=== PATIENT | female | born 1950 | race Caucasian/White ===

== ENCOUNTER → 2016-10-07 | Outpatient (REF) | payer OTHER ==
[~2016-10-07] MED LIST: /ALEN7SOL PO; ADV500INH INH; ADVA115INH INH; ALBU0.084 IN; ASPI81TA7 PO; CEFT500T PO; CRES5TAB PO; FLON1SPR; LOVA20TA2 PO; NASA55AE; PRED20TA PO; VENTAER IN; VITA100072 PO; VITA500046 PO; ZOCO40TA PO; [UNRECOGNIZED DRUG - OTHER]; [UNRECOGNIZED DRUG - OTHER] INH
[2016-10-07 12:32] LABS: BASO % 0.8 % (0.0-1.0); EOS # 0.4 K/mm3 (0.0-0.50); EOS % 7.3 % (0.0-3.0); LARGE UNSTAINED CELL # 0.2 K/mm3 (0.0-0.4); LARGE UNSTAINED CELL % 2.8 % (0.0-4.0); LYMPH # 1.7 K/mm3 (1.5-4.5); LYMPH % 29.3 % (24.0-44.0); MEAN CORPUSCULAR HEMOGLOBIN 30.9 pg (27.0-33.0); MEAN CORPUSCULAR HGB CONC 33.1 g/dl (32.0-36.5); MEAN CORPUSCULAR VOLUME 93.4 fl (80.0-96.0); MONO # 0.4 K/mm3 (0.0-0.8); NEUTROPHILS # 3.1 K/mm3 (1.8-7.7); NEUTROPHILS % 53.8 % (36.0-66.0); PLATELET COUNT, AUTOMATED 267 k/mm3 (150-450); RED CELL DISTRIBUTION WIDTH 11.8 % (11.5-14.5); WHITE BLOOD COUNT 5.7 K/mm3 (4.0-10.0)
[2016-10-07 12:52] LABS: ALBUMIN 3.9 GM/DL (3.2-5.2); ALBUMIN/GLOBULIN RATIO 1.63 (1.00-1.93); BILIRUBIN,TOTAL 0.4 MG/DL (0.2-1.0); CALCIUM LEVEL 8.8 MG/DL (8.8-10.2); CREATININE FOR GFR 1.4 MG/DL (0.55-1.02); GLOMERULAR FILTRATION RATE 40.3 (>45); POTASSIUM SERUM 4.6 MEQ/L (3.5-5.1); TOTAL PROTEIN 6.3 GM/DL (6.4-8.2)
== END ==
LOC: M SFHCPLAZ 08:33
PROVIDERS: ATTEND Physician Assistant
DX: N18.3 Chronic kidney disease, stage 3 (moderate) (principal); E78.4 Other hyperlipidemia; E55.9 Vitamin D deficiency, unspecified

== ENCOUNTER → 2016-11-11 | Outpatient (REF) | payer OTHER | LOC: M SFHCWAGY 08:26 | PROVIDERS: ATTEND Nurse Practitioner Family | DX: Z12.4 Encounter for screening for malignant neoplasm of cervix (principal) ==

== ENCOUNTER → 2017-09-02 | Outpatient (REF) | payer MEDICARE, MEDICAID ==
[2017-09-02 11:52] LABS: BASO # 0.1 10^3/uL (0.0-0.2); EOS # 0.5 10^3/uL (0.0-0.50); EOS % 8.4 % (0.0-3.0); HEMATOCRIT 45.2 % (36.0-47.0); HEMOGLOBIN 15.2 g/dl (12.0-16.0); IMMATURE GRANULOCYTE % 0.3 % (0-3.0); LYMPH # 1.8 10^3/uL (1.5-4.5); LYMPH % 29.1 % (24.0-44.0); MEAN CORPUSCULAR HEMOGLOBIN 31.6 pg (27.0-33.0); MEAN CORPUSCULAR HGB CONC 33.6 g/dl (32.0-36.5); MONO # 0.4 10^3/uL (0.0-0.8); MONO % 6.3 % (0.0-5.0); NEUTROPHILS # 3.4 10^3/uL (1.8-7.7); NEUTROPHILS % 54.9 % (36.0-66.0); PLATELET COUNT, AUTOMATED 226 10^3/uL (150-450); RED BLOOD COUNT 4.81 10^6/uL (4.00-5.40); WHITE BLOOD COUNT 6.2 10^3/uL (4.0-10.0)
[2017-09-02 12:49] LABS: ALBUMIN 4.3 GM/DL (3.2-5.2); ALBUMIN/GLOBULIN RATIO 1.59 (1.00-1.93); ALKALINE PHOSPHATASE 76 U/L (45-117); ALT/SGPT 24 U/L (12-78); ANION GAP 8 MEQ/L (8-16); AST/SGOT 28 U/L (7-37); BILIRUBIN,TOTAL 0.7 MG/DL (0.2-1.0); BLOOD UREA NITROGEN 17 MG/DL (7-18); CALCIUM LEVEL 9.2 MG/DL (8.8-10.2); CARBON DIOXIDE LEVEL 29 MEQ/L (21-32); CHLORIDE LEVEL 105 MEQ/L (98-107); CHOLESTEROL LEVEL 217 MG/DL (<200); CHOLESTEROL RISK RATIO 4.094 (<5); CREATININE FOR GFR 1.23 MG/DL (0.55-1.30); GLOMERULAR FILTRATION RATE 46.6 (>45); GLUCOSE, FASTING 105 MG/DL (70-100); HDL CHOLESTEROL 53 MG/DL (>40); NON-HDL-C 164 MG/DL; POTASSIUM SERUM 4.8 MEQ/L (3.5-5.1); SODIUM LEVEL 142 MEQ/L (136-145); TRIGLYCERIDES LEVEL 155 MG/DL (<150)
== END ==
LOC: M SFHCPLAZ 10:52
DX: Z00.00 Encounter for general adult medical examination without abnormal findings (principal); E78.5 Hyperlipidemia, unspecified; N18.3 Chronic kidney disease, stage 3 (moderate)
CPT/HCPCS: 80053

== ENCOUNTER → 2017-11-12 | Outpatient (REF) | payer MEDICARE, MEDICAID | LOC: M SFHCWAGY 08:26 | DX: Z01.419 Encounter for gynecological examination (general) (routine) without abnormal findings (principal); Z12.12 Encounter for screening for malignant neoplasm of rectum | CPT/HCPCS: G0123 ==

== ENCOUNTER → 2018-03-03 | Outpatient (REF) | payer MEDICARE, OTHER, MEDICAID ==
[2018-03-03 11:50] LABS: ALBUMIN 4.1 GM/DL (3.2-5.2); ALBUMIN/GLOBULIN RATIO 1.46 (1.00-1.93); ALKALINE PHOSPHATASE 63 U/L (45-117); ALT/SGPT 25 U/L (12-78); ANION GAP 9 MEQ/L (8-16); AST/SGOT 27 U/L (7-37); BILIRUBIN,TOTAL 0.8 MG/DL (0.2-1.0); BLOOD UREA NITROGEN 18 MG/DL (7-18); CALCIUM LEVEL 9.1 MG/DL (8.8-10.2); CARBON DIOXIDE LEVEL 27 MEQ/L (21-32); CHLORIDE LEVEL 108 MEQ/L (98-107); CREATININE FOR GFR 1.21 MG/DL (0.55-1.30); GLOMERULAR FILTRATION RATE 47.4 (>45); GLUCOSE, FASTING 95 MG/DL (70-100); POTASSIUM SERUM 4.5 MEQ/L (3.5-5.1); SODIUM LEVEL 144 MEQ/L (136-145); TOTAL PROTEIN 6.9 GM/DL (6.4-8.2)
[2018-03-04 10:58] LABS: HEP C VIRUS AB SCREEN MEDICARE 0.1 INDEX (<0.8)
== END ==
LOC: M SFHCPLAZ 09:10
DX: Z11.59 Encounter for screening for other viral diseases (principal); N18.3 Chronic kidney disease, stage 3 (moderate); E78.5 Hyperlipidemia, unspecified
CPT/HCPCS: 80053

== ENCOUNTER → 2018-09-02 | Outpatient (REF) | payer OTHER, MEDICAID ==
[~2018-09-02] MED LIST changes: +ASPI1TAB PO; +CALC1CAP31 PO; +FLUT11IN INH
[2018-09-02 12:21] LABS: BILIRUBIN,TOTAL 0.8 MG/DL (0.2-1.0); CALCIUM LEVEL 8.9 MG/DL (8.8-10.2); CHOLESTEROL RISK RATIO 3.44 (<5); CREATININE FOR GFR 1.27 MG/DL (0.55-1.30); FREE T4 0.89 NG/DL (0.76-1.46); GLOMERULAR FILTRATION RATE 44.8 (>45); POTASSIUM SERUM 4.4 MEQ/L (3.5-5.1); THYROID STIMULATING HORMONE 2.63 uIU/ML (0.358-3.740); TOTAL PROTEIN 6.7 GM/DL (6.4-8.2)
== END ==
LOC: M SFHCPLAZ 08:12
PROVIDERS: ATTEND Nurse Practitioner Family
DX: E78.5 Hyperlipidemia, unspecified (principal); N18.3 Chronic kidney disease, stage 3 (moderate)

== ENCOUNTER 2018-11-15 12:19 | Day surgery (SDC) | payer MEDICARE, MEDICAID ==
[~2018-11-15] VITALS: Ht 157.5 cm; Wt 76.2 kg
[~2018-11-15 12:19] MED LIST changes: -ASPI1TAB PO; +ASPI81TA26 PO; +NS 1,000 ML IV ONE; +PROAAER10 INH; +VITA100018 PO; -VITA100072 PO; +VITA500045 PO
[2018-11-15] MEDS ORDERED: PROPOFOL 200 MG/20 ML VIAL As Ordered ONE ×2 (14:12→14:13)
[2018-11-15] MEDS ORDERED: LIDOCAINE 2% INJ 100 MG/5 ML SDV (FOR ANES.) As Ordered ONE (14:13)
--- NOTE | 2018-11-15 14:32 | ROOR ---
Patient Name: Kristan Gold Procedure Date: 11/15/2018 2:00 PM Date of : 1950 Age: 68 Room: [facility] Gender: Female Note Status: Finalized Procedure: Colonoscopy Indications: Screening for colorectal malignant neoplasm Providers: Jesse Wolf MD Referring MD: Ana M Holguin NP Requesting Provider: Medicines: Monitored Anesthesia Care Complications: No immediate complications. Procedure: Pre-Anesthesia Assessment: - Prior to the procedure, a History and Physical was performed, and patient medications and allergies were reviewed. The patient is competent. The risks and benefits of the procedure and the sedation options and risks were discussed with the patient. All questions were answered and informed consent was obtained. Patient identification and proposed procedure were verified by the physician, the nurse and the anesthesiologist in the endoscopy suite. Mental Status Examination: alert and oriented. Airway Examination: normal oropharyngeal airway and neck mobility. Respiratory Examination: clear to auscultation. CV Examination: normal. Prophylactic Antibiotics: The patient does not require prophylactic antibiotics. Prior Anticoagulants: The patient has taken aspirin, last dose was day of procedure. ASA Grade Assessment: II - A patient with mild systemic disease. After reviewing the risks and benefits, the patient was deemed in satisfactory condition to undergo the procedure. The anesthesia plan was to use monitored anesthesia care (MAC). Immediately prior to administration of medications, the patient was re-assessed for adequacy to receive sedatives. The heart rate, respiratory rate, oxygen saturations, blood pressure, adequacy of pulmonary ventilation, and response to care were monitored throughout the procedure. The physical status of the patient was re-assessed after the procedure. The Colonoscope was introduced through the anus and advanced to the cecum, identified by appendiceal orifice and ileocecal valve. The colonoscopy was performed without difficulty. The patient tolerated the procedure well. The quality of the bowel preparation was good. Findings: Skin tags were found on perianal exam. A diminutive polyp was found in the descending colon. The polyp was sessile. The polyp was removed with a jumbo cold forceps. Resection and retrieval were complete. Estimated blood loss was minimal. The entire examined colon appeared normal. No additional abnormalities were found on retroflexion. Impression: - Perianal skin tags found on perianal exam. - One diminutive polyp in the descending colon, removed with a jumbo cold forceps. Resected and retrieved. - The entire examined colon is normal. Recommendation: - Discharge patient to home (ambulatory). - Repeat colonoscopy in 10 years for screening purposes. - Telephone my office for pathology results in 1 week. Jesse Wolf MD Jesse Wolf MD 11/15/2018 2:31:52 PM Electronically signed by Jesse Wolf MD Number of Addenda: 0 Note Initiated On: 11/15/2018 2:00 PM Estimated Blood Loss: Estimated blood loss: none. Estimated blood loss was minimal.
[2018-11-15 15:00] VITALS: BP 160/76
== END 2018-11-15 15:14 | disposition home or self-care (01) ==
LOC: M OPP 12:19
PROVIDERS: ATTEND Surgery
DX: D12.4 Benign neoplasm of descending colon (principal); K64.4 Residual hemorrhoidal skin tags; Z12.11 Encounter for screening for malignant neoplasm of colon

== ENCOUNTER → 2019-01-30 | Outpatient (CLI) | payer MEDICARE, MEDICAID ==
[~2019-01-30] MED LIST changes: -NS 1,000 ML IV ONE
--- NOTE | 2019-01-30 21:08 | REP ---
Clinical: Left knee pain Technique: AP, lateral, bilateral oblique and sunrise views left knee . Findings: Mild tricompartmental osteoarthritic degenerative changes include subchondral sclerosis with minimal disc space narrowing and very early marginal spurring. [place] view demonstrates sclerosis and fraying along the anterior patellar margin suggesting associated tendinopathy. No acute fracture dislocation. No effusion. 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 Electronically Signed by Barber Deleon MD 01/30/2019 08:59 P
== END ==
LOC: M WUC 09:35
PROVIDERS: ATTEND Nurse Practitioner Family
DX: M17.12 Unilateral primary osteoarthritis, left knee (principal)

== ENCOUNTER → 2019-09-04 | Outpatient (REF) | payer MEDICARE, MEDICAID ==
[2019-09-04 12:01] LABS: BILIRUBIN,TOTAL 0.8 MG/DL (0.2-1.0); CALCIUM LEVEL 9.1 MG/DL (8.8-10.2); CHOLESTEROL RISK RATIO 3.28 (<5); CREATININE FOR GFR 1.24 MG/DL (0.55-1.30); GLOMERULAR FILTRATION RATE 45.9 (>45); POTASSIUM SERUM 4.6 MEQ/L (3.5-5.1); TOTAL PROTEIN 6.7 GM/DL (6.4-8.2)
[2019-09-04 12:21] LABS: TOTAL 25(OH) VITAMIN D 33.5 NG/ML (30.0-100.0)
[2019-09-04 13:08] LABS: HEMOGLOBIN A1c 5.9 %
== END ==
LOC: M SFHCPLAZ 09:22
PROVIDERS: ATTEND Nurse Practitioner Family
DX: N18.3 Chronic kidney disease, stage 3 (moderate) (principal); E78.5 Hyperlipidemia, unspecified; E55.9 Vitamin D deficiency, unspecified; Z79.899 Other long term (current) drug therapy

== ENCOUNTER → 2019-09-11 | Outpatient (CLI) | payer MEDICARE, MEDICAID ==
--- NOTE | 2019-09-12 13:15 | DEXA ---
AP SPINE L1 - L4 1.082 -0.9 0.7 LT FEMUR TOTAL 0.948 -0.5 0.9 LT NECK 0.933 -0.8 0.8 RT FEMUR TOTAL 0.915 -0.7 0.6 RT NECK 0.802 -1.7 -0.1 TOTAL BODY TOTAL OTHER COMMENTS: Normal bone densitometry of the spine. Normal bone densitometry of the left hip. There is low bone density of the right hip. The density of the spine is increased 2.2% since the initial exam on 08/20/2006. The spine density has increased 0.8% since the most recent exam on 11/14/2014. The density of the left hip has increased 13.4% since the initial exam on 08/20/2006. The density of the left hip has increased 7.0% since the most recent exam on 11/14/2014. The density of the right hip has decreased 0.8% since the initial exam on 08/20/2006. The density of the right hip has increased 2.5% since most recent exam on 11/14/2014. FOLLOW-UP: Recommendation for the next bone density exam: 2 years. CHUCKY
== END ==
LOC: M WHC 10:22
PROVIDERS: ATTEND Nurse Practitioner Family
DX: M81.0 Age-related osteoporosis without current pathological fracture (principal)

== ENCOUNTER → 2019-10-13 | Outpatient (CLI) | payer MEDICARE, MEDICAID ==
[2019-10-13 11:36] LABS: HEMATOCRIT 47.5 % (36.0-47.0); HEMOGLOBIN 15.9 g/dl (12.0-15.5); PLATELET COUNT, AUTOMATED 222 10^3/uL (150-450); WHITE BLOOD COUNT 6.5 10^3/uL (4.0-10.0)
[2019-10-13 12:11] LABS: CALCIUM LEVEL 9.4 MG/DL (8.8-10.2); CREATININE FOR GFR 1.27 MG/DL (0.55-1.30); GLOMERULAR FILTRATION RATE 44.7 (>45); POTASSIUM SERUM 4.6 MEQ/L (3.5-5.1)
== END ==
LOC: M PLALAB 08:45
PROVIDERS: ATTEND Physical Medicine & Rehabilitation
DX: Z01.818 Encounter for other preprocedural examination (principal); I10 Essential (primary) hypertension; Z79.899 Other long term (current) drug therapy
CPT/HCPCS: 36415; 80048; 85014; 85018; 85027; 85048; 93005; G0463

== ENCOUNTER → 2019-11-23 | Outpatient (CLI) | payer MEDICARE, MEDICAID | LOC: M PLALAB 09:26 | PROVIDERS: ATTEND Nurse Practitioner Family | DX: Z01.419 Encounter for gynecological examination (general) (routine) without abnormal findings (principal) | CPT/HCPCS: 36415; G0101; G0123 ==

== ENCOUNTER → 2020-02-15 | Outpatient (CLI) | payer MEDICARE, MEDICAID ==
--- NOTE | 2020-02-15 08:09 | REP ---
Clinical: Genetic predisposition to breast/ovarian cancer. Technique: Transabdominal pelvic ultrasound with color evaluation. The patient declined transvaginal examination. Findings: Bladder is normal and measures 7.1 x 4.6 x 6.9 cm. Normal anteverted uterus measures 7.2 x 3.4 x 4.8 cm. Endometrial complex measures 3.6 mm thickness. Bilateral ovaries are normal in appearance. Right ovary measures 2.2 x 1.5 x 2.5 cm. Left ovary measures 1.8 x 0.8 x 1.7 cm. No pelvic fluid or adnexal mass lesion. Impression: Limited transabdominal examination without obvious abnormality noted. Electronically Signed by Barber Deleon MD 02/15/2020 08:02 A
== END ==
LOC: M WHC 06:49
PROVIDERS: ATTEND Obstetrics & Gynecology
DX: Z15.02 Genetic susceptibility to malignant neoplasm of ovary (principal)

== ENCOUNTER → 2020-02-28 | Outpatient (REF) | payer MEDICARE, MEDICAID ==
[2020-03-28 22:46] LABS: BASO # 0.1 10^3/uL (0.0-0.2); BASO % 0.9 % (0.0-1.0); EOS # 0.4 10^3/uL (0.0-0.5); EOS % 5.6 % (0.0-3.0); HEMATOCRIT 48.7 % (36.0-47.0); HEMOGLOBIN 15.8 g/dl (12.0-15.5); LYMPH # 2.1 10^3/uL (1.5-5.0); LYMPH % 30.9 % (24.0-44.0); MEAN CORPUSCULAR HEMOGLOBIN 31.7 pg (27.0-33.0); MEAN CORPUSCULAR HGB CONC 32.4 g/dl (32.0-36.5); MEAN CORPUSCULAR VOLUME 97.8 fl (80.0-96.0); MONO # 0.6 10^3/uL (0.0-0.8); MONO % 8.2 % (0.0-5.0); NEUTROPHILS # 3.7 10^3/uL (1.5-8.5); NEUTROPHILS % 54.3 % (36.0-66.0); PLATELET COUNT, AUTOMATED 220 10^3/uL (150-450); RED BLOOD COUNT 4.98 10^6/uL (4.00-5.40); WHITE BLOOD COUNT 6.8 10^3/uL (4.0-10.0)
[2020-04-13 17:38] LABS: ALBUMIN 4.3 GM/DL (3.2-5.2); BILIRUBIN,TOTAL 0.5 MG/DL (0.2-1.0); CALCIUM LEVEL 9.2 MG/DL (8.8-10.2); CREATININE FOR GFR 1.36 MG/DL (0.55-1.30); GLOMERULAR FILTRATION RATE 41.2 (>45)
== END ==
LOC: M SFHCPLAZ 10:45
PROVIDERS: ATTEND Internal Medicine
DX: N18.3 Chronic kidney disease, stage 3 (moderate) (principal); J45.40 Moderate persistent asthma, uncomplicated; E78.5 Hyperlipidemia, unspecified
CPT/HCPCS: 36415; 80053; 85025; 93005; G0463

== ENCOUNTER 2020-03-08 08:30 | Day surgery (SDC) | payer MEDICARE, MEDICAID ==
[2020-03-08] MEDS ORDERED: ceFAZolin 2 GM/D5W 50 ML IV BAG (J0690 PER 500MG) ONE (08:49)
[2020-03-08] MEDS ORDERED: ceFAZolin 2 GM/D5W 50 ML IV BAG (J0690 PER 500MG) As Ordered ONE (08:49)
[2020-03-08] MEDS ORDERED: MIDAZOLAM INJ 2MG/2ML VIAL (J2250 PER 1MG) As Ordered ONE (10:38)
[2020-03-08] MEDS ORDERED: fentaNYL 250 MCG/5 ML INJECTION (J3010) As Ordered ONE (10:38)
[2020-03-08] MEDS ORDERED: propofoL 200 MG/20 ML VIAL As Ordered ONE (10:38)
[2020-03-08] MEDS ORDERED: LIDOCAINE 2% 100MG/5ML SDV (FOR ANES.) As Ordered ONE (10:41)
[2020-03-08] MEDS ORDERED: ROCURONIUM BROMIDE 50 MG/5 ML VIAL As Ordered ONE ×2 (10:41→14:04)
[2020-03-08] MEDS ORDERED: ONDANSETRON 4MG/2ML VIAL As Ordered ONE (10:41)
[2020-03-08] MEDS ORDERED: dexameTHASONE 4 MG/ML 1ML VIAL (J1100 PER 1MG) As Ordered ONE (10:41)
[2020-03-08] MEDS ORDERED: BUPIVACAINE HCL 0.25% 30ML VIAL As Ordered ONE (11:47)
[2020-03-08] MEDS ORDERED: METHYLENE BLUE 0.5% (5MG/ML) 10 ML AMP (PROVAYBLUE) As Ordered ONE (11:47)
[2020-03-08] MEDS ORDERED: HYDROmorphone HCL 2 MG/ML 1ML VIAL (J1170) As Ordered ONE (13:34)
[2020-03-08] MEDS ORDERED: SUGAMMADEX SODIUM 500 MG/5 ML VIAL (BRIDION) As Ordered ONE (13:34)
[2020-03-08] MEDS ORDERED: ePHEDrine SULFATE 25 MG/5 ML(5MG/ML) SYRINGE As Ordered ONE (13:47)
[2020-03-08] MEDS ORDERED: KETOROLAC 60MG 2ML VIAL As Ordered ONE (13:49)
[2020-03-08] MEDS ORDERED: ACETAMINOPHEN 1000MG 100ML IV BTL (OFIRMEV) (J0131 PER 10MG) As Ordered ONE (14:06)
[2020-03-09] MEDS ORDERED: PERCOCET 5MG/325MG TAB As Ordered ONE (02:15)
--- NOTE | 2020-05-02 13:23 | RO ---
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 Severe pelvic adhesive disease, diverticular disease. PROCEDURE PERFORMED: Robotic assisted total laparoscopic hysterectomy, bilateral salpingo-oophorectomy (risk reducing), extensive robotic assisted lysis of adhesions. SURGEON: Camden Martinez MD SPONSORSHIP MANAGER: Zach Hunt ANESTHESIA: General endotracheal. SPECIMENS SENT TO PATHOLOGY: Uterus, cervix and fallopian tubes and ovaries bilaterally. ESTIMATED BLOOD LOSS: 100 ml FLUIDS REFPLACE: 1,600 ml lactate Ringers DRAINS: Olivares catheter. URINE OUTPUT: 150 ml COMPLICAIONS: None. PREOPERATIVE ANTIBIOTICS: Ancef 2 gm IV times one INTRAOPERATIVE FINDINGS: Severe pelvic adhesive disease involving the uterus, cervix, fallopian tubes and ovaries bilaterally. The GROUP THER[employer]IST organs were essentially cased in adhesions and in close proximity to severe diverticular disease. No evidence of any bowel injury during the surgery. INDICATION: BRCA2 carrier. The patient has a personal history of breast cancer. She has a sister with ovarian cancer. PROCEDURE: The patient was counseled and consented on the risks, benefits, indications and alternatives of the procedure, informed consent was obtained. She was taken to the operating room with the IV running and placed on the operating table in the dorsal supine position. General anesthesia was administered and the airway secured without any difficulty. She was then placed on the low lithotomy position. She was prepared and draped in the normal sterile fashion. Time-out was performed per protocol. The Olivares catheter was placed under sterile conditions. A sterile spectrum was placed into the vagina. The cervix was stenotic and postmenopausal and very attenuated. The cervical os was stenotic and was unable to initially gain access into the intrauterine cavity. An 11 blade was used to make a cruciate incision along the cervical os and then lacrimal duct probes were used to sequentially dilate the cervix. I eventually was able to gain access into the intrauterine cavity and the Alfa dilators were used to dilate the cervix up to #16. The IM-Senseare uterine manipulator was then placed in typical fashion. The speculum was removed from the vagina. Glove switch was performed. Attention was turned to the abdomen. A Veress needle was placed through the umbilicus into the intraperitoneal cavity. Intraperitoneal placement was confirmed with easy flow of normal saline. Negative return on aspiration and a positive drop test. Opening pressure was 2 mmHg. The abdomen was insufflated with 2 liters of gas. The Veress needle was removed. A supraumbilical incision was made at the midline 8 mm long with an 11 blade; and through this incision, a DaVinci cannula/trocar was placed under direct visualization. Intraperitoneal placement was confirmed. No incidental bleeding or injury was noted. The additional DaVinci port sites were placed in the left and right abdomen, two incisions on each side, each 8 mm and each accommodating an 8 mm DaVinci cannula. Each of the cannulas was placed with the trocars under direct visualization without any difficulty. The patient was then placed in steep Trendelenburg with findings noted above. There was a significant amount of pelvic adhesive disease and none of the anatomy was fully delineated initially. The attention was then turned to the robotic console with meticulous dissection of adhesions; first by reducing the adhesions that were attaching the bowel to the posterior uterus and then the pelvic sidewall/adnexa bilaterally. The adnexa, to include the ovaries, were identified bilaterally after extensive adhesiolysis and retroperitoneal dissection to also identify the ureter. The left IP ligament was identified and sequentially clamped, coagulated and cut with the Vessel Sealer device; thus, detaching the left ovary. In similar fashion, the right IP ligament was identified noted to be away from the right ureter and the right IP ligament was sequentially clamped, coagulated and transected using the Vessel Sealer device. The underlying mesosalpinx was sequentially clamped, coagulated and transected using the Vessel Sealer device for both the right and left fallopian tubes. The excised fallopian tubes and ovaries were brought through the 8 mm cannulas given the very small size of these organs. The attention was then turned to performing the hysterectomy. Again, an extensive amount of adhesiolysis was performed as I traveled down the uterus to identify the colpotomy ring/cup. The right and left uteroovarian ligaments were sequentially clamped, coagulated and transected using the Vessel Sealer device. The round ligaments were then clamped, coagulated and transected using the Vessel Sealer device. A vesicouterine peritoneum dissection was performed/adhesiolysis to identify the anterior cup of the colpotomy ring with the VCare device. The entire VCare cup could be identified. Circumferential incision was made Monopolar phan to create the colpotomy. After this was performed, the uterus and cervix were fully detached and brought through the vagina. The vaginal cuff was then closed with a V-Loc suture in running fashion. Excellent hemostasis was noted. Melissa was placed over the surgical sites. Excellent hemostasis was noted throughout. No evidence of bowel injury was noted. The gas was released from the abdomen. The patient was taken out of Trendelenburg after the robot was un-docked. The Olivares catheter was removed. I was unable to place the cystoscope through the very small urethra, it barely accommodated and 16 Sami Olivares catheter; and given there was no concern for ureteral injury, given the level of dissection and the ability to identify it laparoscopically, the decision was made to forego the cystoscopy. The vagina was copiously irrigated and the vaginal cuff was palpated and noted to be intact. Glove switch was performed. Attention was turned back to the abdomen. The laparoscopic cannulas were removed after the air was removed. The skin incisions were closed with 4-0 monochrome subcuticular fashion re-enforcement Dermabond. The patient tolerated the entire procedure well. Sponge, needle and instrument counts were correct per protocol. The patient was transferred to the PACU in good and stable condition. [facility]
[2020-05-04 19:32] LABS: HEMOGLOBIN 17.1 g/dl (12.0-15.5); MEAN CORPUSCULAR HEMOGLOBIN 31.9 pg (27.0-33.0); MEAN CORPUSCULAR HGB CONC 33.5 g/dl (32.0-36.5); MEAN CORPUSCULAR VOLUME 95.1 fl (80.0-96.0); PLATELET COUNT, AUTOMATED 216 10^3/uL (150-450); RED BLOOD COUNT 5.36 10^6/uL (4.00-5.40); WHITE BLOOD COUNT 6.7 10^3/uL (4.0-10.0)
== END 2020-03-09 08:50 | disposition home or self-care (01) ==
LOC: M SDC 08:30
PROVIDERS: ATTEND Obstetrics & Gynecology
DX: N84.0 Polyp of corpus uteri (principal); N73.6 Female pelvic peritoneal adhesions (postinfective); N83.331 Acquired atrophy of right ovary and fallopian tube; N83.332 Acquired atrophy of left ovary and fallopian tube; Z15.01 Genetic susceptibility to malignant neoplasm of breast; Z15.02 Genetic susceptibility to malignant neoplasm of ovary; K57.90 Diverticulosis of intestine, part unspecified, without perforation or abscess without bleeding; Z85.3 Personal history of malignant neoplasm of breast; Z80.41 Family history of malignant neoplasm of ovary; J45.909 Unspecified asthma, uncomplicated; N28.9 Disorder of kidney and ureter, unspecified; Z92.21 Personal history of antineoplastic chemotherapy; Z92.3 Personal history of irradiation; Z90.13 Acquired absence of bilateral breasts and nipples; Z79.899 Other long term (current) drug therapy; Z79.82 Long term (current) use of aspirin; Z79.51 Long term (current) use of inhaled steroids; Z88.6 Allergy status to analgesic agent; Z88.1 Allergy status to other antibiotic agents
CPT/HCPCS: 58571; 85027; 86850; 86900; 86901; 88307; J0131; J0690; J1100; J1170; J1885; J2250; J2405; J3010; Q9968

== ENCOUNTER → 2020-04-09 | Outpatient (CLI) | payer MEDICARE, MEDICAID ==
[2020-04-09 13:24] LABS: BILIRUBIN,TOTAL 0.7 MG/DL (0.2-1.0); CALCIUM LEVEL 9.1 MG/DL (8.8-10.2); CHOLESTEROL RISK RATIO 4.333 (<5); CREATININE FOR GFR 1.24 MG/DL (0.55-1.30); GLOMERULAR FILTRATION RATE 45.8 (>45); POTASSIUM SERUM 4.5 MEQ/L (3.5-5.1); TOTAL PROTEIN 6.8 GM/DL (6.4-8.2)
[2020-04-09 13:26] LABS: BASO # 0.1 10^3/uL (0.0-0.2); BASO % 0.9 % (0.0-1.0); EOS # 0.4 10^3/uL (0.0-0.5); EOS % 7.6 % (0.0-3.0); HEMATOCRIT 44.8 % (36.0-47.0); HEMOGLOBIN 14.6 g/dl (12.0-15.5); LYMPH # 1.6 10^3/uL (1.5-5.0); LYMPH % 29.3 % (24.0-44.0); MEAN CORPUSCULAR HEMOGLOBIN 31.5 pg (27.0-33.0); MEAN CORPUSCULAR HGB CONC 32.6 g/dl (32.0-36.5); MEAN CORPUSCULAR VOLUME 96.6 fl (80.0-96.0); MONO # 0.5 10^3/uL (0.0-0.8); MONO % 9.1 % (0.0-5.0); NEUTROPHILS # 2.9 10^3/uL (1.5-8.5); NEUTROPHILS % 52.9 % (36.0-66.0); PLATELET COUNT, AUTOMATED 204 10^3/uL (150-450); RED BLOOD COUNT 4.64 10^6/uL (4.00-5.40); WHITE BLOOD COUNT 5.4 10^3/uL (4.0-10.0)
== END ==
LOC: M PLALAB 08:55
PROVIDERS: ATTEND Physician Assistant Medical
DX: E78.5 Hyperlipidemia, unspecified (principal); N18.3 Chronic kidney disease, stage 3 (moderate); Z90.79 Acquired absence of other genital organ(s)

== ENCOUNTER → 2020-11-05 | Outpatient (REF) | payer MEDICARE, MEDICAID ==
[2020-11-05 11:23] LABS: ALBUMIN 3.9 GM/DL (3.2-5.2); BILIRUBIN,TOTAL 0.5 MG/DL (0.2-1.0); CALCIUM LEVEL 9.3 MG/DL (8.8-10.2); CHOLESTEROL RISK RATIO 3.555 (<5); CREATININE FOR GFR 1.17 MG/DL (0.55-1.30); FREE T4 0.9 NG/DL (0.76-1.46); POTASSIUM SERUM 4.6 MEQ/L (3.5-5.1); THYROID STIMULATING HORMONE 2.19 uIU/ML (0.358-3.740); TOTAL PROTEIN 6.6 GM/DL (6.4-8.2)
[2020-11-05 11:24] LABS: TOTAL 25(OH) VITAMIN D 18.7 NG/ML (30.0-100.0)
[2020-11-05 12:14] LABS: HEMOGLOBIN A1c 5.6 %
== END ==
LOC: M PLALAB 09:48
PROVIDERS: ATTEND Nurse Practitioner Family
DX: E55.9 Vitamin D deficiency, unspecified (principal); E78.5 Hyperlipidemia, unspecified; N18.30 Chronic kidney disease, stage 3 unspecified; R73.01 Impaired fasting glucose

== ENCOUNTER → 2021-04-28 | Outpatient (CLI) | payer MEDICARE, MEDICAID ==
[2021-04-28 14:42] LABS: ALBUMIN 4.3 GM/DL (3.2-5.2); BILIRUBIN,TOTAL 0.8 MG/DL (0.2-1.0); CALCIUM LEVEL 9.6 MG/DL (8.8-10.2); CHOLESTEROL RISK RATIO 3.442 (<5); CREATININE FOR GFR 1.31 MG/DL (0.55-1.30); GLOMERULAR FILTRATION RATE 42.9 (>45); POTASSIUM SERUM 4.4 MEQ/L (3.5-5.1); TOTAL PROTEIN 6.8 GM/DL (6.4-8.2)
[2021-04-28 15:54] LABS: HEMOGLOBIN A1c 5.5 %
== END ==
LOC: M PLALAB 09:18
PROVIDERS: ATTEND Nurse Practitioner Family
DX: E78.5 Hyperlipidemia, unspecified (principal); Z79.899 Other long term (current) drug therapy

== ENCOUNTER → 2021-06-27 | Outpatient (CLI) | payer MEDICARE ==
[2021-06-27 10:40] LABS: ALBUMIN 3.7 GM/DL (3.2-5.2); CALCIUM LEVEL 9.2 MG/DL (8.8-10.2); CREATININE FOR GFR 1.22 MG/DL (0.55-1.30); GLOMERULAR FILTRATION RATE 46.5 (>45); PHOSPHORUS LEVEL 2.9 MG/DL (2.5-4.9); POTASSIUM SERUM 4.6 MEQ/L (3.5-5.1)
== END ==
LOC: M PLALAB 08:54
PROVIDERS: ATTEND Nurse Practitioner Family
DX: N18.30 Chronic kidney disease, stage 3 unspecified (principal)

== ENCOUNTER → 2021-12-01 | Outpatient (CLI) | payer MEDICARE, MEDICAID | LOC: M WHC 10:54 | PROVIDERS: ATTEND Nurse Practitioner Family | DX: M85.89 Other specified disorders of bone density and structure, multiple sites (principal) ==

== ENCOUNTER 2022-01-27 15:23 | Inpatient (IN) | payer MEDICARE, MEDICAID ==
[~2022-01-27] VITALS: Ht 154.9 cm; Wt 78.1 kg
[2022-01-27] MEDS ORDERED: IPRATROPIUM 0.5MG/ALBUTEROL 2.5MG INH SOL UD 3ML (DUONEB) NEB ONE (16:05)
[2022-01-27] MEDS ORDERED: ALBUTEROL SULFATE 2.5 MG/0.5 ML INH NEB SOLN INH ONE (16:05)
[2022-01-27 16:54] LABS: BASO # 0.1 10^3/uL (0.0-0.2); BASO % 0.8 % (0.0-1.0); EOS # 0.4 10^3/uL (0.0-0.5); EOS % 5.8 % (0.0-3.0); HEMATOCRIT 42.4 % (36.0-47.0); HEMOGLOBIN 14.3 g/dl (12.0-15.5); LYMPH # 1.2 10^3/uL (1.5-5.0); LYMPH % 15.9 % (24.0-44.0); MEAN CORPUSCULAR HEMOGLOBIN 31.5 pg (27.0-33.0); MEAN CORPUSCULAR HGB CONC 33.7 g/dl (32.0-36.5); MEAN CORPUSCULAR VOLUME 93.4 fl (80.0-96.0); MONO # 0.3 10^3/uL (0.0-0.8); MONO % 4.3 % (2.0-8.0); NEUTROPHILS # 5.4 10^3/uL (1.5-8.5); NEUTROPHILS % 72.8 % (36.0-66.0); PLATELET COUNT, AUTOMATED 200 10^3/uL (150-450); RED BLOOD COUNT 4.54 10^6/uL (4.00-5.40); WHITE BLOOD COUNT 7.5 10^3/uL (4.0-10.0)
[2022-01-27 17:13] LABS: CK-MB VALUE MASS 2.6 NG/ML (<3.6); MB/CK RELATIVE INDEX 1.77 (< OR =4)
[2022-01-27 17:25] LABS: RSV AMPLIFICATION NEGATIVE (NEGATIVE)
[2022-01-27] MEDS ORDERED: ISOVUE-370 76% 100ML VIAL As Ordered ONE (17:31)
[2022-01-27 17:32] LABS: ALBUMIN 3.8 GM/DL (3.2-5.2); BILIRUBIN,DIRECT 0.2 MG/DL (0.0-0.2); BILIRUBIN,TOTAL 0.5 MG/DL (0.2-1.0); THYROID STIMULATING HORMONE 2.61 uIU/ML (0.358-3.740); THYROXINE (T4) 7.8 UG/DL (4.5-12.0); TOTAL PROTEIN 6.5 GM/DL (6.4-8.2)
[2022-01-27 17:53] LABS: CK-MB VALUE MASS 2.2 NG/ML (<3.6); MB/CK RELATIVE INDEX 1.59 (< OR =4)
[2022-01-27] MEDS ORDERED: IPRATROPIUM 0.5MG/ALBUTEROL 2.5MG INH SOL UD 3ML (DUONEB) NEB PRN (19:05)
[2022-01-27] MEDS ORDERED: VITMTA PO (19:53)
[2022-01-27] MEDS ORDERED: HOME MED LIST COMPLETE! XX SCH (19:55)
[2022-01-27] MEDS ORDERED: BENZONATATE 100MG CAPSULE PO PRN (19:55)
[2022-01-27] MEDS ORDERED: BUDESONIDE 180MCG INHALER (PULMICORT FLEXHALER) INH SCH (20:00)
[2022-01-27] MEDS: PANTOPRAZOLE 40MG TAB (PROTONIX) PO SCH (21:27)
[2022-01-27] MEDS: guaiFENesin ER 600 MG TAB PO SCH (21:27)
[2022-01-27] MEDS: dexameTHASONE 4 MG/ML 1ML VIAL (J1100 PER 1MG) IV SCH (21:27)
[2022-01-27 21:33] LABS: HEMOGLOBIN A1c 5.7 %
[2022-01-27] MEDS ORDERED: NS 500 ML IV ONE (21:45)
[2022-01-27] MEDS ORDERED: NS 1,000 ML IV SCH (21:45)
[2022-01-27] MEDS ORDERED: REMDESIVIR 200 MG in NS 250 ML IV ONE (22:00)
[2022-01-27] MEDS: AZITHROMYCIN 250MG TABLET PO SCH (22:03)
[2022-01-27] MEDS: SIMVASTATIN 20 MG TAB PO SCH (22:03)
[2022-01-27] MEDS: FLUTICASONE HFA 110 MCG 12 GM INHALER (FLOVENT) INH SCH (22:05)
[2022-01-27] MEDS: IPRATROPIUM 0.5MG/ALBUTEROL 2.5MG INH SOL UD 3ML (DUONEB) NEB SCH (23:18)
[2022-01-28] MEDS ORDERED: SODIUM CHLORIDE 0.9% INJ 10 ML SYR IV ONE
[2022-01-28] MEDS: IPRATROPIUM 0.5MG/ALBUTEROL 2.5MG INH SOL UD 3ML (DUONEB) NEB SCH ×3 (00:34→17:38)
[2022-01-28] MEDS: DOXYCYCLINE HYCLATE 100MG TABLET PO SCH ×3 (03:23→19:08)
[2022-01-28] MEDS: FLUTICASONE HFA 110 MCG 12 GM INHALER (FLOVENT) INH SCH ×2 (07:57→20:20)
[2022-01-28 08:40] LABS: BASO % 0.1 % (0.0-1.0); HEMATOCRIT 44.2 % (36.0-47.0); HEMOGLOBIN 14.8 g/dl (12.0-15.5); LYMPH # 1.3 10^3/uL (1.5-5.0); LYMPH % 8.6 % (24.0-44.0); MEAN CORPUSCULAR HEMOGLOBIN 31.2 pg (27.0-33.0); MEAN CORPUSCULAR HGB CONC 33.5 g/dl (32.0-36.5); MEAN CORPUSCULAR VOLUME 93.2 fl (80.0-96.0); MONO # 0.3 10^3/uL (0.0-0.8); MONO % 1.8 % (2.0-8.0); NEUTROPHILS # 13.1 10^3/uL (1.5-8.5); PLATELET COUNT, AUTOMATED 208 10^3/uL (150-450); RED BLOOD COUNT 4.74 10^6/uL (4.00-5.40); WHITE BLOOD COUNT 14.7 10^3/uL (4.0-10.0)
[2022-01-28 08:50] LABS: INR 0.89; PARTIAL THROMBOPLASTIN TIME 31.1 SECONDS (25.9-37.0); PROTHROMBIN TIME 12.4 SECONDS (12.7-14.5)
[2022-01-28 08:53] LABS: D-DIMER QUANT 738.24 ng/ml (<500)
[2022-01-28] MEDS: FLUTICASONE PROP 0.05% NASAL SPRAY 16 GM (FLONASE) SCH (09:00)
[2022-01-28 09:10] LABS: CALCIUM LEVEL 9.5 MG/DL (8.8-10.2); CREATININE FOR GFR 1.12 MG/DL (0.55-1.30); GLOMERULAR FILTRATION RATE 51.3 (>45); MAGNESIUM LEVEL 2.1 MG/DL (1.8-2.4); POTASSIUM SERUM 4.6 MEQ/L (3.5-5.1)
[2022-01-28 09:12] LABS: CK-MB VALUE MASS 3.6 NG/ML (<3.6); MB/CK RELATIVE INDEX 2.71 (< OR =4)
[2022-01-28 09:13] LABS: ALBUMIN 3.9 GM/DL (3.2-5.2); BILIRUBIN,TOTAL 0.4 MG/DL (0.2-1.0); C REACTIVE PROTEIN QUANTITATIV 0.3 MG/DL (0.00-0.30); CREATININE FOR GFR 1.15 MG/DL (0.55-1.30); GLOMERULAR FILTRATION RATE 49.8 (>45); MAGNESIUM LEVEL 2.1 MG/DL (1.8-2.4); POTASSIUM SERUM 4.6 MEQ/L (3.5-5.1); TOTAL PROTEIN 6.7 GM/DL (6.4-8.2)
[2022-01-28] MEDS: MULTIVITAMINS/MINERALS THERAP 1 TAB PO SCH (09:43)
[2022-01-28] MEDS: CYANOCOBALAMIN 500 MCG TAB PO SCH (09:44)
[2022-01-28] MEDS: LACTOBACILLUS ACIDOPHILUS CAP (BACID) PO SCH (09:44)
[2022-01-28] MEDS: PANTOPRAZOLE 40MG TAB (PROTONIX) PO SCH (09:44)
[2022-01-28] MEDS: ASPIRIN 81MG ENTERIC TABLET PO SCH (09:44)
[2022-01-28] MEDS: guaiFENesin ER 600 MG TAB PO SCH ×2 (09:44→21:52)
[2022-01-28] MEDS: AZITHROMYCIN 250MG TABLET PO SCH (09:44)
[2022-01-28] MEDS: ENOXAPARIN 40MG/0.4ML SYRINGE (J1650 PER 10MG) SC SCH (09:44)
[2022-01-28] MEDS: dexameTHASONE 4 MG/ML 1ML VIAL (J1100 PER 1MG) IV SCH (09:44)
[2022-01-28 19:40] VITALS: BP 134/73
[2022-01-28] MEDS: SIMVASTATIN 20 MG TAB PO SCH (21:51)
[2022-01-28] MEDS ORDERED: REMDESIVIR 100 MG in NS 250 ML IV SCH (22:00)
[2022-01-28 22:09] VITALS: BP 129/63
[2022-01-28] MEDS ORDERED: SODIUM CHLORIDE 0.9% INJ 10 ML SYR IV SCH (23:00)
[2022-01-29] MEDS: IPRATROPIUM 0.5MG/ALBUTEROL 2.5MG INH SOL UD 3ML (DUONEB) NEB SCH ×3 (01:28→13:13)
[2022-01-29] MEDS: DOXYCYCLINE HYCLATE 100MG TABLET PO SCH (05:42)
[2022-01-29 06:00] VITALS: BP 137/74
[2022-01-29 06:16] LABS: BASO % 0.2 % (0.0-1.0); HEMOGLOBIN 13.7 g/dl (12.0-15.5); LYMPH # 1.7 10^3/uL (1.5-5.0); LYMPH % 9.5 % (24.0-44.0); MEAN CORPUSCULAR HEMOGLOBIN 32.4 pg (27.0-33.0); MEAN CORPUSCULAR HGB CONC 33.4 g/dl (32.0-36.5); MEAN CORPUSCULAR VOLUME 96.9 fl (80.0-96.0); MONO # 0.9 10^3/uL (0.0-0.8); NEUTROPHILS # 15.2 10^3/uL (1.5-8.5); PLATELET COUNT, AUTOMATED 201 10^3/uL (150-450); RED BLOOD COUNT 4.23 10^6/uL (4.00-5.40); WHITE BLOOD COUNT 18.2 10^3/uL (4.0-10.0)
[2022-01-29 06:22] LABS: INR 1.09; PARTIAL THROMBOPLASTIN TIME 33.2 SECONDS (25.9-37.0); PROTHROMBIN TIME 14.5 SECONDS (12.7-14.5)
[2022-01-29 06:45] LABS: ALBUMIN 3.3 GM/DL (3.2-5.2); BILIRUBIN,DIRECT 0.1 MG/DL (0.0-0.2); BILIRUBIN,TOTAL 0.6 MG/DL (0.2-1.0); CALCIUM LEVEL 8.5 MG/DL (8.8-10.2); CREATININE FOR GFR 1.09 MG/DL (0.55-1.30); MAGNESIUM LEVEL 2.1 MG/DL (1.8-2.4); POTASSIUM SERUM 4.4 MEQ/L (3.5-5.1); TOTAL PROTEIN 5.8 GM/DL (6.4-8.2)
[2022-01-29] MEDS: FLUTICASONE HFA 110 MCG 12 GM INHALER (FLOVENT) INH SCH (07:33)
[2022-01-29] MEDS ORDERED: E-Z-PAQUE 96% w/w SUSP 176GM BTL As Ordered ONE (10:04)
[2022-01-29] MEDS ORDERED: E-Z-HD 98% w/w 340GM SUSP BTL As Ordered ONE (10:04)
[2022-01-29] MEDS ORDERED: E-Z-GAS II EFFERVESCENT PACKET (SODIUM BICARB./CITRIC ACID/SIMETHICONE) As Ordered ONE (10:04)
[2022-01-29] MEDS: dexameTHASONE 4 MG/ML 1ML VIAL (J1100 PER 1MG) IV SCH (10:54)
[2022-01-29] MEDS: MULTIVITAMINS/MINERALS THERAP 1 TAB PO SCH (10:54)
[2022-01-29] MEDS: CYANOCOBALAMIN 500 MCG TAB PO SCH (10:54)
[2022-01-29] MEDS: AZITHROMYCIN 250MG TABLET PO SCH (10:54)
[2022-01-29] MEDS: LACTOBACILLUS ACIDOPHILUS CAP (BACID) PO SCH (10:54)
[2022-01-29] MEDS: PANTOPRAZOLE 40MG TAB (PROTONIX) PO SCH (10:54)
[2022-01-29] MEDS: ENOXAPARIN 40MG/0.4ML SYRINGE (J1650 PER 10MG) SC SCH (10:55)
[2022-01-29] MEDS: ASPIRIN 81MG ENTERIC TABLET PO SCH (10:55)
[2022-01-29] MEDS: guaiFENesin ER 600 MG TAB PO SCH (10:55)
[2022-01-29] MEDS: FLUTICASONE PROP 0.05% NASAL SPRAY 16 GM (FLONASE) SCH (11:25)
[2022-01-29] MEDS ORDERED: RISATAB3 PO (11:31)
[2022-01-29] MEDS ORDERED: PANT40TA29 PO (11:31)
[2022-01-29] MEDS ORDERED: BENZ-18 PO (11:31)
[2022-01-29] MEDS ORDERED: PROAAER10 INH (11:31)
[2022-01-29] MEDS ORDERED: SYMB80INH INH (11:31)
[2022-01-29] MEDS ORDERED: PRED10TA2 PO (11:31)
[2022-01-29] MEDS ORDERED: MUCI600T31 PO (11:31)
[2022-01-29] MEDS ORDERED: DOXY100T PO (11:31)
[2022-01-29] MEDS ORDERED: SPIR1CAP INH (11:31)
== END 2022-01-29 14:07 | disposition home or self-care (01) | DRG 177 ==
LOC: EDBD 15:23 → M ED 15:23 → M ED INP 19:01 → ENRESERV 01-28 16:11 → M MSPAV 01-28 19:54
PROVIDERS: ADMIT Internal Medicine; ATTEND Family Medicine
DX: U07.1 COVID-19 (principal); J96.01 Acute respiratory failure with hypoxia; J44.1 Chronic obstructive pulmonary disease with (acute) exacerbation; N17.9 Acute kidney failure, unspecified; E87.2 Acidosis; K20.90 Esophagitis, unspecified without bleeding; Z85.3 Personal history of malignant neoplasm of breast; Z88.8 Allergy status to other drugs, medicaments and biological substances; Z88.6 Allergy status to analgesic agent; Z79.899 Other long term (current) drug therapy; Z79.82 Long term (current) use of aspirin

== ENCOUNTER → 2022-02-09 | Outpatient (CLI) | payer MEDICARE, MEDICAID ==
[~2022-02-09] MED LIST changes: +BENZ-18 PO; +DOXY100T PO; +MUCI600T31 PO; +PANT40TA29 PO; +PRED10TA2 PO; +RISATAB3 PO; +SPIR1CAP INH; +SYMB80INH INH; +VITMTA PO
[2022-02-09 17:47] LABS: BASO % 0.3 % (0.0-1.0); EOS # 0.1 10^3/uL (0.0-0.5); EOS % 1.3 % (0.0-3.0); HEMATOCRIT 43.5 % (36.0-47.0); HEMOGLOBIN 14.2 g/dl (12.0-15.5); LYMPH # 1.8 10^3/uL (1.5-5.0); LYMPH % 17.6 % (24.0-44.0); MEAN CORPUSCULAR HEMOGLOBIN 31.9 pg (27.0-33.0); MEAN CORPUSCULAR HGB CONC 32.6 g/dl (32.0-36.5); MEAN CORPUSCULAR VOLUME 97.8 fl (80.0-96.0); MONO # 0.6 10^3/uL (0.0-0.8); MONO % 5.4 % (2.0-8.0); NEUTROPHILS # 7.8 10^3/uL (1.5-8.5); NEUTROPHILS % 74.7 % (36.0-66.0); PLATELET COUNT, AUTOMATED 188 10^3/uL (150-450); RED BLOOD COUNT 4.45 10^6/uL (4.00-5.40); WHITE BLOOD COUNT 10.4 10^3/uL (4.0-10.0)
[2022-02-09 17:53] LABS: ALBUMIN 3.8 GM/DL (3.2-5.2); BILIRUBIN,TOTAL 0.7 MG/DL (0.2-1.0); CALCIUM LEVEL 9.4 MG/DL (8.8-10.2); CREATININE FOR GFR 1.18 MG/DL (0.55-1.30); GLOMERULAR FILTRATION RATE 48.3 (>45); POTASSIUM SERUM 4.9 MEQ/L (3.5-5.1); TOTAL PROTEIN 6.4 GM/DL (6.4-8.2)
== END ==
LOC: M PLALAB 15:45
PROVIDERS: ATTEND Physician Assistant Medical
DX: E78.5 Hyperlipidemia, unspecified (principal); N18.30 Chronic kidney disease, stage 3 unspecified

== ENCOUNTER → 2022-04-29 | Outpatient (CLI) | payer MEDICARE, MEDICAID | LOC: M PLAIMG 15:06 | PROVIDERS: ATTEND Nurse Practitioner Adult Health | DX: J45.41 Moderate persistent asthma with (acute) exacerbation (principal) ==

== ENCOUNTER → 2022-05-08 | Outpatient (REF) | payer MEDICARE, MEDICAID | LOC: M PLALAB 10:06 | PROVIDERS: ATTEND Nurse Practitioner Family | DX: Z12.4 Encounter for screening for malignant neoplasm of cervix (principal) | CPT/HCPCS: 87624; G0123 ==

== ENCOUNTER → 2022-05-20 | Outpatient (CLI) | payer MEDICARE, MEDICAID ==
[~2022-05-20] MED LIST changes: +ALBU2.5V10 PO; +LOVA40TA PO; +OMEP40CA5 PO; +PROA1AER2 IN
[2022-05-20 18:02] LABS: BILIRUBIN,TOTAL 0.9 MG/DL (0.2-1.0); CALCIUM LEVEL 9.8 MG/DL (8.8-10.2); CHOLESTEROL RISK RATIO 3.418 (<5); CREATININE FOR GFR 1.5 MG/DL (0.55-1.30); GLOMERULAR FILTRATION RATE 36.5 (>39); POTASSIUM SERUM 4.7 MEQ/L (3.5-5.1); TOTAL PROTEIN 6.6 GM/DL (6.4-8.2)
[2022-05-20 19:31] LABS: TOTAL 25(OH) VITAMIN D 29.8 NG/ML (30.0-100.0)
== END ==
LOC: M WUC 13:17
PROVIDERS: ATTEND Nurse Practitioner Family
DX: E78.5 Hyperlipidemia, unspecified (principal); E55.9 Vitamin D deficiency, unspecified; R73.01 Impaired fasting glucose; Z79.899 Other long term (current) drug therapy

== ENCOUNTER → 2022-05-27 | Outpatient (CLI) | payer MEDICARE, MEDICAID | LOC: M LABSMTC 11:42 | PROVIDERS: ATTEND Anesthesiology | DX: Z01.812 Encounter for preprocedural laboratory examination (principal); Z11.52 Encounter for screening for COVID-19 ==

== ENCOUNTER 2022-06-01 10:34 | Day surgery (SDC) | payer MEDICARE, MEDICAID ==
[~2022-06-01] VITALS: Ht 154.9 cm; Wt 79.7 kg
[~2022-06-01 10:34] MED LIST changes: +NS 1,000 ML IV ONE
[2022-06-01] MEDS ORDERED: LIDOCAINE 2% 100MG/5ML SDV (FOR ANES.) As Ordered ONE (10:39)
[2022-06-01] MEDS ORDERED: propofoL 200 MG/20 ML VIAL As Ordered ONE (10:39)
[2022-06-01 13:20] VITALS: BP 177/88
== END 2022-06-01 13:25 | disposition home or self-care (01) ==
LOC: M OPP 10:34
PROVIDERS: ATTEND Internal Medicine Gastroenterology
DX: K22.2 Esophageal obstruction (principal); K44.9 Diaphragmatic hernia without obstruction or gangrene; R13.10 Dysphagia, unspecified; Z79.02 Long term (current) use of antithrombotics/antiplatelets; Z79.51 Long term (current) use of inhaled steroids; Z79.82 Long term (current) use of aspirin; Z88.1 Allergy status to other antibiotic agents; Z88.8 Allergy status to other drugs, medicaments and biological substances; J44.9 Chronic obstructive pulmonary disease, unspecified; N18.30 Chronic kidney disease, stage 3 unspecified; E78.00 Pure hypercholesterolemia, unspecified; M85.9 Disorder of bone density and structure, unspecified; Z85.3 Personal history of malignant neoplasm of breast; Z92.21 Personal history of antineoplastic chemotherapy; Z80.3 Family history of malignant neoplasm of breast; Z83.71 Family history of colonic polyps

== ENCOUNTER → 2022-11-24 | Outpatient (CLI) | payer MEDICARE, MEDICAID ==
[~2022-11-24] MED LIST changes: -NS 1,000 ML IV ONE
[2022-11-24 16:36] LABS: ALBUMIN 4.5 G/DL (3.2-5.2); BILIRUBIN,TOTAL 0.9 MG/DL (0.3-1.2); CALCIUM LEVEL 9.7 MG/DL (8.3-10.6); CHOLESTEROL RISK RATIO 3.65 (<5); CREATININE FOR GFR 1.31 MG/DL (0.55-1.30); GLOMERULAR FILTRATION RATE 42.7 (>39); HDL CHOLESTEROL 46.5 MG/DL (>40); LDL CHOLESTEROL 99.3 MG/DL (<100); NON-HDL-C 123.5 MG/DL; POTASSIUM SERUM 4.6 MMOL/L (3.5-5.1); TOTAL PROTEIN 6.6 G/DL (5.7-8.2)
[2022-11-24 16:38] LABS: FREE T4 0.98 NG/DL (0.89-1.76); THYROID STIMULATING HORMONE 2.655 uIU/ML (0.55-4.78); TOTAL 25(OH) VITAMIN D 27.8 NG/ML (20.0-100.0)
[2022-11-24 16:45] LABS: BASO # 0.1 10^3/uL (0.0-0.2); BASO % 0.7 % (0.0-1.0); EOS # 0.3 10^3/uL (0.0-0.5); EOS % 3.8 % (0.0-3.0); HEMATOCRIT 47.4 % (36.0-47.0); HEMOGLOBIN 15.5 g/dl (12.0-15.5); LYMPH # 1.6 10^3/uL (1.5-5.0); LYMPH % 23.2 % (24.0-44.0); MEAN CORPUSCULAR HEMOGLOBIN 31.6 pg (27.0-33.0); MEAN CORPUSCULAR HGB CONC 32.7 g/dl (32.0-36.5); MEAN CORPUSCULAR VOLUME 96.5 fl (80.0-96.0); MONO # 0.4 10^3/uL (0.0-0.8); MONO % 5.8 % (2.0-8.0); NEUTROPHILS # 4.6 10^3/uL (1.5-8.5); NEUTROPHILS % 66.2 % (36.0-66.0); PLATELET COUNT, AUTOMATED 232 10^3/uL (150-450); RED BLOOD COUNT 4.91 10^6/uL (4.00-5.40); WHITE BLOOD COUNT 6.9 10^3/uL (4.0-10.0)
[2022-11-24 17:01] LABS: HEMOGLOBIN A1c 5.4 % (4.0-6.0)
== END ==
LOC: M WUC 11:49
PROVIDERS: ATTEND Nurse Practitioner Family
DX: E78.5 Hyperlipidemia, unspecified (principal); E55.9 Vitamin D deficiency, unspecified; R73.01 Impaired fasting glucose; J45.40 Moderate persistent asthma, uncomplicated

== ENCOUNTER → 2023-02-01 | Outpatient (CLI) | payer MEDICARE, MEDICAID ==
[~2023-02-01] MED LIST changes: -FLUT11IN INH; +FLUT12AE6 INH
== END ==
LOC: M RAD 07:58
PROVIDERS: ATTEND Nurse Practitioner Family
DX: N18.31 Chronic kidney disease, stage 3a (principal)

== ENCOUNTER → 2023-04-26 | Outpatient (CLI) | payer MEDICARE, MEDICAID | LOC: M PLAIMG 14:46 | PROVIDERS: ATTEND Nurse Practitioner Adult Health | DX: J45.41 Moderate persistent asthma with (acute) exacerbation (principal) ==

== ENCOUNTER → 2023-05-26 | Outpatient (CLI) | payer MEDICARE, MEDICAID ==
[2023-05-26 10:30] LABS: BASO # 0.1 10^3/uL (0.0-0.2); BASO % 0.9 % (0.0-1.0); EOS # 0.3 10^3/uL (0.0-0.5); EOS % 4.1 % (0.0-3.0); HEMATOCRIT 43.2 % (36.0-47.0); HEMOGLOBIN 14.6 g/dl (12.0-15.5); LYMPH # 1.7 10^3/uL (1.5-5.0); LYMPH % 26.7 % (24.0-44.0); MEAN CORPUSCULAR HEMOGLOBIN 32.4 pg (27.0-33.0); MEAN CORPUSCULAR HGB CONC 33.8 g/dl (32.0-36.5); MONO # 0.5 10^3/uL (0.0-0.8); MONO % 8.1 % (2.0-8.0); NEUTROPHILS # 3.8 10^3/uL (1.5-8.5); NEUTROPHILS % 59.9 % (36.0-66.0); PLATELET COUNT, AUTOMATED 236 10^3/uL (150-450); WHITE BLOOD COUNT 6.3 10^3/uL (4.0-10.0)
[2023-05-26 11:02] LABS: HEMOGLOBIN A1c 5.4 % (4.0-6.0)
[2023-05-26 11:08] LABS: BILIRUBIN,TOTAL 0.8 MG/DL (0.3-1.2); CALCIUM LEVEL 9.3 MG/DL (8.3-10.6); CHOLESTEROL RISK RATIO 3.95 (<5); CREATININE FOR GFR 1.21 MG/DL (0.55-1.30); GLOMERULAR FILTRATION RATE 46.7 (>39); LDL CHOLESTEROL 105.2 MG/DL (<100); POTASSIUM SERUM 4.5 MMOL/L (3.5-5.1); TOTAL 25(OH) VITAMIN D 30.7 NG/ML (20.0-100.0); TOTAL PROTEIN 6.5 G/DL (5.7-8.2)
== END ==
LOC: M PLALAB 08:20
PROVIDERS: ATTEND Nurse Practitioner Family
DX: Z00.00 Encounter for general adult medical examination without abnormal findings (principal); E78.5 Hyperlipidemia, unspecified; E55.9 Vitamin D deficiency, unspecified; N25.81 Secondary hyperparathyroidism of renal origin; J45.40 Moderate persistent asthma, uncomplicated; R73.01 Impaired fasting glucose; M85.80 Other specified disorders of bone density and structure, unspecified site; Z79.899 Other long term (current) drug therapy; Z85.3 Personal history of malignant neoplasm of breast; Z12.11 Encounter for screening for malignant neoplasm of colon

== ENCOUNTER → 2023-11-15 | Outpatient (CLI) | payer MEDICARE, MEDICAID ==
[2023-11-15 10:44] LABS: CREATININE FOR GFR 1.3 MG/DL (0.55-1.30)
== END ==
LOC: M PLALAB 08:37
PROVIDERS: ATTEND Otolaryngology
DX: C02.9 Malignant neoplasm of tongue, unspecified (principal)

== ENCOUNTER → 2023-11-15 | Outpatient (CLI) | payer MEDICARE, MEDICAID ==
[2023-11-15 10:21] LABS: BASO # 0.1 10^3/uL (0.0-0.2); EOS # 0.3 10^3/uL (0.0-0.5); EOS % 5.6 % (0.0-3.0); HEMOGLOBIN 15.7 g/dl (12.0-15.5); LYMPH # 1.7 10^3/uL (1.5-5.0); LYMPH % 27.7 % (24.0-44.0); MEAN CORPUSCULAR HEMOGLOBIN 31.8 pg (27.0-33.0); MEAN CORPUSCULAR HGB CONC 33.4 g/dl (32.0-36.5); MEAN CORPUSCULAR VOLUME 95.1 fl (80.0-96.0); MONO # 0.4 10^3/uL (0.0-0.8); MONO % 7.3 % (2.0-8.0); NEUTROPHILS # 3.5 10^3/uL (1.5-8.5); NEUTROPHILS % 58.2 % (36.0-66.0); PLATELET COUNT, AUTOMATED 210 10^3/uL (150-450); RED BLOOD COUNT 4.94 10^6/uL (4.00-5.40)
[2023-11-15 10:44] LABS: BILIRUBIN,TOTAL 0.9 MG/DL (0.3-1.2); CALCIUM LEVEL 9.4 MG/DL (8.3-10.6); CHOLESTEROL RISK RATIO 3.39 (<5); CREATININE FOR GFR 1.29 MG/DL (0.55-1.30); GLOMERULAR FILTRATION RATE 43.4 (>39); HDL CHOLESTEROL 47.4 MG/DL (>40); LDL CHOLESTEROL 88.6 MG/DL (<100); NON-HDL-C 113.6 MG/DL; POTASSIUM SERUM 4.9 MMOL/L (3.5-5.1); TOTAL PROTEIN 6.6 G/DL (5.7-8.2)
[2023-11-15 10:45] LABS: INR 1.06; PARTIAL THROMBOPLASTIN TIME 32.3 SECONDS (24.8-34.2); PROTHROMBIN TIME 13.5 SECONDS (12.5-14.5)
[2023-11-15 11:00] LABS: HEMOGLOBIN A1c 5.4 % (4.0-6.0)
== END ==
LOC: M PLALAB 08:41
PROVIDERS: ATTEND Nurse Practitioner Family
DX: E78.5 Hyperlipidemia, unspecified (principal); N18.31 Chronic kidney disease, stage 3a; R73.01 Impaired fasting glucose; C02.9 Malignant neoplasm of tongue, unspecified; J45.40 Moderate persistent asthma, uncomplicated; Z79.01 Long term (current) use of anticoagulants

== ENCOUNTER → 2023-11-18 | Outpatient (CLI) | payer MEDICARE, MEDICAID ==
[~2023-11-18] MED LIST changes: +ISOVUE-370 76% 100ML VIAL ONE
== END ==
LOC: M PLAIMG 13:21
PROVIDERS: ATTEND Student in an Organized Health Care Education/Training Program
DX: C02.9 Malignant neoplasm of tongue, unspecified (principal)
CPT/HCPCS: 70491; Q9967

== ENCOUNTER 2024-02-22 10:40 | Outpatient (RCR) | payer MEDICARE, MEDICAID ==
[~2024-02-22 10:40] MED LIST changes: -ISOVUE-370 76% 100ML VIAL ONE; +QVAR80AE8 INH
== END 2024-02-23 ==
LOC: M PT 10:40
PROVIDERS: ATTEND Otolaryngology
DX: M54.2 Cervicalgia (principal); M25.512 Pain in left shoulder

== ENCOUNTER → 2024-02-28 | Outpatient (CLI) | payer MEDICARE, MEDICAID ==
[2024-02-28 10:42] LABS: BASO # 0.1 10^3/uL (0.0-0.2); BASO % 1.1 % (0.0-1.0); EOS # 0.5 10^3/uL (0.0-0.5); EOS % 6.9 % (0.0-3.0); HEMATOCRIT 46.6 % (36.0-47.0); HEMOGLOBIN 15.5 g/dl (12.0-15.5); LYMPH # 2.1 10^3/uL (1.5-5.0); LYMPH % 31.5 % (24.0-44.0); MEAN CORPUSCULAR HEMOGLOBIN 32.4 pg (27.0-33.0); MEAN CORPUSCULAR HGB CONC 33.3 g/dl (32.0-36.5); MEAN CORPUSCULAR VOLUME 97.5 fl (80.0-96.0); MONO # 0.5 10^3/uL (0.0-0.8); MONO % 6.8 % (2.0-8.0); NEUTROPHILS # 3.5 10^3/uL (1.5-8.5); NEUTROPHILS % 53.4 % (36.0-66.0); PLATELET COUNT, AUTOMATED 209 10^3/uL (150-450); RED BLOOD COUNT 4.78 10^6/uL (4.00-5.40); WHITE BLOOD COUNT 6.6 10^3/uL (4.0-10.0)
[2024-02-28 10:51] LABS: HEMOGLOBIN A1c 5.4 % (4.0-6.0)
[2024-02-28 11:17] LABS: ALBUMIN 4.4 G/DL (3.2-5.2); BILIRUBIN,TOTAL 1.2 MG/DL (0.3-1.2); CALCIUM LEVEL 9.5 MG/DL (8.3-10.6); CHOLESTEROL RISK RATIO 3.22 (<5); CREATININE FOR GFR 1.14 MG/DL (0.55-1.30); GLOMERULAR FILTRATION RATE 49.9 (>39); HDL CHOLESTEROL 56.7 MG/DL (>40); LDL CHOLESTEROL 100.7 MG/DL (<100); NON-HDL-C 126.3 MG/DL; POTASSIUM SERUM 4.3 MMOL/L (3.5-5.1); TOTAL PROTEIN 6.8 G/DL (5.7-8.2)
[2024-02-28 11:19] LABS: FREE T4 0.97 NG/DL (0.89-1.76); THYROID STIMULATING HORMONE 3.747 uIU/ML (0.55-4.78)
== END ==
LOC: M PLALAB 08:16
PROVIDERS: ATTEND Nurse Practitioner Family
DX: E78.5 Hyperlipidemia, unspecified (principal); J45.40 Moderate persistent asthma, uncomplicated; R73.01 Impaired fasting glucose

== ENCOUNTER → 2024-03-10 | Outpatient (CLI) | payer MEDICAID, MEDICARE | LOC: M WHC 13:18 | PROVIDERS: ATTEND Nurse Practitioner Family | DX: M85.89 Other specified disorders of bone density and structure, multiple sites (principal) ==

== ENCOUNTER 2024-03-22 11:37 | Outpatient (RCR) | payer MEDICARE, MEDICAID | END 2024-03-25 | LOC: M PT 11:37 | PROVIDERS: ATTEND Otolaryngology | DX: M25.512 Pain in left shoulder (principal) ==

== ENCOUNTER 2024-03-30 12:27 | Outpatient (RCR) | payer MEDICARE, MEDICAID | END 2024-04-24 | LOC: M PT 12:27 | PROVIDERS: ATTEND Otolaryngology | DX: M25.512 Pain in left shoulder (principal); C02.9 Malignant neoplasm of tongue, unspecified ==

== ENCOUNTER → 2024-05-17 | Outpatient (REF) | payer MEDICARE, MEDICAID ==
[2024-05-24 15:17] LABS: HPV VAGINAL Not Detected (NOT DETECT)
== END ==
LOC: M SFHCWAGY 13:29
PROVIDERS: ATTEND Nurse Practitioner Family
DX: Z12.72 Encounter for screening for malignant neoplasm of vagina (principal); N95.2 Postmenopausal atrophic vaginitis
CPT/HCPCS: 87624; G0123

== ENCOUNTER 2024-08-24 08:21 | Day surgery (SDC) | payer MEDICARE, MEDICAID ==
[~2024-08-24] VITALS: Ht 156.2 cm; Wt 75.7 kg
[~2024-08-24 08:21] MED LIST changes: +CYAN500T14 PO; +THERTAB52 PO
[2024-08-24] MEDS ORDERED: LIDOCAINE 2% 100MG/5ML SDV (FOR ANES.) As Ordered ONE (10:26)
[2024-08-24] MEDS ORDERED: propofoL 200 MG/20 ML VIAL As Ordered ONE (10:26)
[2024-08-24 10:29] VITALS: TEMP 96.1
[2024-08-24 10:50] VITALS: BP 131/59; O2SAT 100
== END 2024-08-24 10:56 | disposition home or self-care (01) ==
LOC: M OPP 08:21
PROVIDERS: ATTEND Surgery
DX: D12.3 Benign neoplasm of transverse colon (principal); K64.8 Other hemorrhoids; Z86.0100 Personal history of colon polyps, unspecified; Z88.1 Allergy status to other antibiotic agents; Z88.8 Allergy status to other drugs, medicaments and biological substances; Z79.82 Long term (current) use of aspirin; Z79.899 Other long term (current) drug therapy

== ENCOUNTER → 2024-11-22 | Outpatient (CLI) | payer MEDICARE, MEDICAID | LOC: M WUC 11:29 | PROVIDERS: ATTEND Physician Assistant | DX: J06.9 Acute upper respiratory infection, unspecified (principal); J45.901 Unspecified asthma with (acute) exacerbation; R06.02 Shortness of breath ==

== ENCOUNTER → 2024-12-05 | Outpatient (CLI) | payer MEDICARE, MEDICAID ==
[2024-12-05 17:27] LABS: ALBUMIN 3.7 G/DL (3.2-5.2); BILIRUBIN,TOTAL 0.8 MG/DL (0.3-1.2); CALCIUM LEVEL 9.6 MG/DL (8.3-10.6); CREATININE FOR GFR 1.22 MG/DL (0.55-1.30); GLOMERULAR FILTRATION RATE 47.2 (>39); POTASSIUM SERUM 4.3 MMOL/L (3.5-5.1); TOTAL PROTEIN 6.6 G/DL (5.7-8.2)
[2024-12-05 17:33] LABS: BASO # 0.1 10^3/uL (0.0-0.2); BASO % 0.5 % (0.0-1.0); EOS # 0.4 10^3/uL (0.0-0.5); EOS % 3.8 % (0.0-3.0); HEMATOCRIT 46.3 % (36.0-47.0); HEMOGLOBIN 14.9 g/dl (12.0-15.5); LYMPH # 2.2 10^3/uL (1.5-5.0); LYMPH % 19.8 % (24.0-44.0); MEAN CORPUSCULAR HEMOGLOBIN 31.9 pg (27.0-33.0); MEAN CORPUSCULAR HGB CONC 32.2 g/dl (32.0-36.5); MEAN CORPUSCULAR VOLUME 99.1 fl (80.0-96.0); MONO # 0.8 10^3/uL (0.0-0.8); MONO % 6.7 % (2.0-8.0); NEUTROPHILS # 7.8 10^3/uL (1.5-8.5); NEUTROPHILS % 68.4 % (36.0-66.0); PLATELET COUNT, AUTOMATED 220 10^3/uL (150-450); RED BLOOD COUNT 4.67 10^6/uL (4.00-5.40); WHITE BLOOD COUNT 11.3 10^3/uL (4.0-10.0)
== END ==
LOC: M PLAIMG 15:23
PROVIDERS: ATTEND Nurse Practitioner Family
DX: J18.9 Pneumonia, unspecified organism (principal)

== ENCOUNTER → 2025-02-01 | Outpatient (CLI) | payer MEDICARE, MEDICAID ==
[~2025-02-01] MED LIST changes: +ALBU8.5H INH; +AZIT-12 PO; +BENZ200C70; +DOXY-442 PO; +PREDOPD OD; +PRESCAP PO; +REST0.05 OU
[2025-02-01 13:39] LABS: ESTIMATED AVERAGE GLUCOSE 120.0 MG/DL (60-110)
[2025-02-01 13:40] LABS: CHOLESTEROL LEVEL 195.0 MG/DL (<200); CHOLESTEROL RISK RATIO 3.57 (<5); LDL CHOLESTEROL 112.6 MG/DL (<100); NON-HDL-C 140.4 MG/DL; TRIGLYCERIDES LEVEL 139.0 MG/DL (<150)
[2025-02-01 13:45] LABS: FREE T4 1.12 NG/DL (0.89-1.76)
== END ==
LOC: M WUC 10:21
PROVIDERS: ATTEND Nurse Practitioner Family
DX: R73.01 Impaired fasting glucose (principal); E78.5 Hyperlipidemia, unspecified; J45.41 Moderate persistent asthma with (acute) exacerbation

== ENCOUNTER → 2025-02-01 | Outpatient (CLI) | payer MEDICARE, MEDICAID ==
[2025-02-01 13:17] LABS: BASO # 0.1 10^3/uL (0.0-0.2); BASO % 0.8 % (0.0-1.0); EOS # 0.4 10^3/uL (0.0-0.5); EOS % 6.3 % (0.0-3.0); LYMPH # 1.3 10^3/uL (1.5-5.0); LYMPH % 21.1 % (24.0-44.0); MONO # 0.4 10^3/uL (0.0-0.8); MONO % 7.0 % (2.0-8.0); NEUTROPHILS # 4.1 10^3/uL (1.5-8.5); NEUTROPHILS % 64.5 % (36.0-66.0); PLATELET COUNT, AUTOMATED 216 10^3/uL (150-450)
== END ==
LOC: M WUC 10:25
PROVIDERS: ATTEND Nurse Practitioner Adult Health
DX: J45.41 Moderate persistent asthma with (acute) exacerbation (principal)

== ENCOUNTER → 2025-02-27 | Outpatient (CLI) | payer MEDICARE, MEDICAID ==
[~2025-02-27] MED LIST changes: +PRED10TA2
== END ==
LOC: M PLAIMG 16:22
PROVIDERS: ATTEND Nurse Practitioner Family
DX: M17.12 Unilateral primary osteoarthritis, left knee (principal)

== ENCOUNTER → 2025-03-14 | Outpatient (CLI) | payer MEDICARE, MEDICAID ==
[~2025-03-14] MED LIST changes: -PRED10TA2
== END ==
LOC: M PLAIMG 08:42
PROVIDERS: ATTEND Nurse Practitioner Family
DX: N20.0 Calculus of kidney (principal)

== ENCOUNTER → 2025-05-22 | Outpatient (REF) | payer MEDICARE, MEDICAID ==
[~2025-05-22] MED LIST changes: +PRED10TA2
== END ==
LOC: M LAB REF 17:32
PROVIDERS: ATTEND Nurse Practitioner Adult Health
DX: J45.41 Moderate persistent asthma with (acute) exacerbation (principal)

== ENCOUNTER → 2025-05-23 | Outpatient (REF) | payer MEDICARE, MEDICAID | LOC: M LAB REF 12:15 | PROVIDERS: ATTEND Nurse Practitioner Adult Health | DX: J45.41 Moderate persistent asthma with (acute) exacerbation (principal) ==

== ENCOUNTER → 2025-07-17 | Outpatient (CLI) | payer MEDICARE, MEDICAID ==
[2025-07-17 12:06] LABS: BASO # 0.1 10^3/uL (0.0-0.2); BASO % 0.7 % (0.0-1.0); EOS # 0.5 10^3/uL (0.0-0.5); EOS % 6.0 % (0.0-3.0); LYMPH # 1.6 10^3/uL (1.5-5.0); LYMPH % 19.4 % (24.0-44.0); MONO # 0.7 10^3/uL (0.0-0.8); MONO % 9.0 % (2.0-8.0); NEUTROPHILS # 5.2 10^3/uL (1.5-8.5); NEUTROPHILS % 64.5 % (36.0-66.0); PLATELET COUNT, AUTOMATED 209 10^3/uL (150-450)
[2025-07-17 12:12] LABS: ALT/SGPT 16.0 U/L (7.0-40); AST/SGOT 26.0 U/L (<34); CALCIUM LEVEL 9.1 MG/DL (8.3-10.6); CARBON DIOXIDE LEVEL 29.0 MMOL/L (20-31); CHLORIDE LEVEL 105.0 MMOL/L (98-107); CHOLESTEROL LEVEL 209.0 MG/DL (<200); CHOLESTEROL RISK RATIO 3.69 (<5); CREATININE FOR GFR 1.27 MG/DL (0.55-1.30); GLOMERULAR FILTRATION RATE 44.7 (>39); LDL CHOLESTEROL 112.8 MG/DL (<100); NON-HDL-C 152.4 MG/DL; POTASSIUM SERUM 4.8 MMOL/L (3.5-5.1); SODIUM LEVEL 141.0 MMOL/L (136-145); TRIGLYCERIDES LEVEL 198.0 MG/DL (<150)
[2025-07-17 12:16] LABS: ESTIMATED AVERAGE GLUCOSE 117.0 MG/DL (60-110)
== END ==
LOC: M WUC 08:16
PROVIDERS: ATTEND Nurse Practitioner Family
DX: E55.9 Vitamin D deficiency, unspecified (principal); J45.40 Moderate persistent asthma, uncomplicated; R73.01 Impaired fasting glucose; E78.5 Hyperlipidemia, unspecified